=== PATIENT | female | born 1980 | race Caucasian/White ===

== ENCOUNTER → 2018-04-01 | Outpatient (CLI) | payer OTHER ==
--- NOTE | 2018-04-01 16:04 | CT ---
EXAMINATION TYPE: CT pelvis w con DATE OF EXAM: 04/01/2018 COMPARISON: NONE HISTORY: RLQ pain with abnormal vagianl bleeding CT DLP: 1159.6 mGycm Automated exposure control for dose reduction was used. CONTRAST: Performed with IV Contrast, patient injected with 100 mL of Isovue 300. FINDINGS: There is fullness to the uterus and endocervical canal. Hyperdensity within the endometrium is seen c onfiguration of the endometrium is somewhat irregular. No free fluid. Ovaries have a normal appearanc e by CT scan but would be more adequately assessed with pelvic ultrasound. No pathologic adenopathy. Visualized bowel gas pattern nonspecific. Visualized portion of the appendix are within normal limits . Visualized portions of the pancreas, spleen, adrenal glands, liver and gallbladder are within josefina l limits. Mild hepatic steatosis suggested. IMPRESSION: THERE IS FULLNESS TO THE ENDOCERVICAL CANAL AND HETEROGENEOUS APPEARANCE OF THE ENDOMETRIUM. PELVIC U LTRASOUND IS RECOMMENDED FOR FURTHER EVALUATION.
== END | disposition home or self-care (01) ==
LOC: RADCTMAIN 13:19
PROVIDERS: ATTEND Family Medicine
DX: R93.8 Abnormal findings on diagnostic imaging of other specified body structures (principal); R10.2 Pelvic and perineal pain; R19.4 Change in bowel habit
CPT/HCPCS: 72193; Q9967